=== PATIENT | female | born 1950 | race Two or more races ===

== ENCOUNTER 2023-11-09 08:09 | Emergency (ER) | payer OTHER ==
[~2023-11-09] VITALS: Ht 162.6 cm; Wt 44.0 kg
[2023-11-09 09:11] LABS: Urine Bacteria None Seen /hpf (None Seen)
[2023-11-09 09:15] LABS: Basophils # (auto) 0 10 ^3/uL (0-0.2); Basophils % (auto) 0.9 % (0.0-2.0); Eosinophils # (auto) 0.1 10 ^3/uL (0-0.8); Eosinophils % (auto) 2.6 % (0.0-7.0); Hematocrit 36.5 % (36.0-46.0); Hemoglobin 12.7 g/dL (12.2-16.2); Lymphocytes # (auto) 1.1 10 ^3/uL (0.4-5.4); Lymphocytes % (auto) 18.9 % (10.0-50.0); Mean Corpuscular Hemoglobin 33.2 pg (28.0-32.0); Mean Corpuscular Hgb Conc. 34.8 g/dL (32.0-36.0); Mean Corpuscular Volume 95.4 fL (80.0-100.0); Monocytes # (auto) 0.4 10 ^3/uL (0-1.3); Monocytes % (auto) 6.2 % (0.0-12.0); Neutrophils # (auto) 4.1 10 ^3/uL (1.6-8.6); Neutrophils % (auto) 71.4 % (37.0-80.0); Red Blood Cells 3.83 10^6/uL (4.0-5.20); Red Cell Distribution Width 12.9 % (11.8-14.3); White Blood Cell 5.8 10^3/uL (4.4-10.8)
[2023-11-09 09:21] LABS: Chloride 103 mmol/L (98-107); Potassium 4.1 mmol/L (3.5-5.1); Sodium 137 mmol/L (136-145)
[2023-11-09 09:22] LABS: Anion Gap 5 (5-15); Calcium 9.2 mg/dL (8.5-10.1); Carbon Dioxide 29 mmol/L (20-30)
[2023-11-09 09:27] LABS: BUN/Creatinine Ratio 26.1 (10.0-20.0); Blood Urea Nitrogen 24 mg/dL (9-23); Glucose 98 mg/dL (74-106)
[2023-11-09 10:15] LABS: Urine Blood Negative /uL (Negative); Urine Clarity Clear (Clear); Urine Color Light-Yellow (Yellow); Urine Protein, UAD Negative (Negative); Urine Specific Gravity 1.015 (1.001-1.035); Urine Urobilinogen Normal (Negative); Urine WBC <1 /hpf (0 - 5); Urine pH 7.5 (5.0-9.0)
[2023-11-09 10:27] VITALS: BP 128/76; PULSE 72; RESP 15; TEMP 98.5; O2SAT 98
[2023-11-09] MEDS ORDERED: LEVO500T91 PO (10:31)
== END 2023-11-09 10:38 | disposition home or self-care (01) ==
LOC: ER 08:09 → EDBD 08:09 → ER 10:38
DX: J01.90 Acute sinusitis, unspecified (principal); I10 Essential (primary) hypertension
CPT/HCPCS: 36415; 80048; 81001; 84484; 85025

== ENCOUNTER 2024-09-14 09:32 | Emergency (ER) | payer OTHER ==
[~2024-09-14] VITALS: Ht 149.9 cm; Wt 42.4 kg
[~2024-09-14 09:32] MED LIST: LEVO500T91 PO
[2024-09-14] MEDS: FAMOTIDINE 20 MG TAB PO ONE (10:23)
[2024-09-14] MEDS: diphenhdrAMINE HCL 25 MG CAP PO ONE (10:23)
[2024-09-14] MEDS: predniSONE 20 MG TAB PO ONE (10:23)
--- NOTE | 2024-09-14 10:24 | ED.PDOC ---
HPI Allergic reaction HPI Comments 73-year-old female presents with a chief complaint of angio-edema to lips. Patient states that last night she placed Vicks on her lips and went to bed and woke up with swollen lips. Patient is also on Lisinopril for her HTN. Patient denies anything new in her routines. No other symptoms or modifying factors present at this time. Chief Complaint: Allergic Reaction Time Seen by MD: 09:50 Primary Care Provider: VAIBHAV Marie Notes: Medications, Allergies Allergies: Coded Allergies: Caffeine (Verified Allergy, Unknown, TACHYCARDIA, 09/14/24) Clarithromycin (Verified Allergy, Unknown, SWOLLEN THROAT, 09/14/24) Doxycycline (Verified Allergy, Unknown, LEG WEAKNESS, VOMIT, BLURRY VISION, 09/14/24) Penicillins (Verified Allergy, Unknown, ABDOMEN PAIN, 09/14/24) Procaine (Verified Allergy, Unknown, CARDIAC ARREST, 09/14/24) Sulfa Antibiotics (Verified Allergy, Unknown, TONGUE SWELLING, 09/14/24) Home Meds Active Scripts Levofloxacin Hemihydrate (LEVAQUIN 500 MG) 500 Mg Tab, 1 TAB PO DAILY, #7 TAB Prov:BRENNA JULIO 11/09/23 Information Source: Patient Mode of Arrival: Ambulatory Severity: Moderate Rash: None SOB: None Difficulty swallowing: None Pruritus: None Timing: Hours Duration: Since onset Prehospital treatment: None Location: Lips Exposed to: Medication (LISINOPRIL) History of: None Modyifying Factors: None Associated Sign and Symptoms: None Past Medical History PAST MEDICAL HISTORY: HTN Past Medical History (Other): SLEEP APNEA Surgical History: Denies all surgeries 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 Pertinent BLOCK MAKING MACHINE OPERATOR History Family History Family History: Reviewed,noncontributory to illness Social History Smoker: Non-Smoker Alcohol: Denies ETOH Use Drugs: Denies Drug Use Lives In: Home Constitutional: denies: chills, diaphoresis, fatigue, fever, malaise, sweats, weakness, others EENTM: denies: blurred vision, double vision, ear bleeding, ear discharge, ear drainage, ear pain, ear ringing, eye pain, eye redness, hearing loss, mouth pain, mouth swelling, nasal discharge, nose bleeding, nose congestion, nose pain, photophobia, tearing, throat pain, throat swelling, voice changes, others Respiratory: denies: cough, hemoptysis, orthopnea, SOB at rest, shortness of breath, SOB with excertion, stridor, wheezing, others Cardiovascular: reports: edema (ANGIO-EDEMA); denies: chest pain, dizzy spells, diaphoresis, Dyspnea on exertion, irregular heart beat, left arm pain, lightheadedness, palpitations, PND, syncope, others Gastrointestinal: denies: abdomen distended, abdominal pain, blood streaked bowels, constipated, diarrhea, dysphagia, difficulty swallowing, hematemesis, melena, nausea, poor appetite, poor fluid intake, rectal bleeding, rectal pain, vomiting, others Genitourinary: denies: abnormal vagina bleeding, burning, dyspareunia, dysuria, flank pain, frequency, hematuria, incontinence, pain, , vagina discharge, urgency, others Neurological: denies: dizziness, fainting, headache, left sided numbness, left sided weakness, numbness, paresthesia, pre-existing deficit, right sided numbness, right sided weakness, seizure, speech problems, tingling, tremors, weakness, others Musculoskeletal: denies: back pain, gout, joint pain, joint swelling, muscle pain, muscle stiffness, neck pain, others Integumetry: denies: bruises, change in color, change in hair/nails, dryness, laceration, lesions, lumps, rash, wounds, others Allergic/Immunocompromised: denies: Difficulty Healing, Frequent Infections, Hives, Itching, others Hematologic/Lymphatic: denies: anemia, blood clots, easy bleeding, easy bruising, swollen glands, others Endocrine: denies: excessive hunger, excessive sweating, excessive thirst, excessive urination, flushing, intolerance to cold, intolerance to heat, unexplained weight gain, unexplained weight loss, others Psychiatric: denies: anxiety, bipolar disorder, depression, hopeless, panic disorder, schizophrenia, sleepless, suicidal, others All Other Systems: Reviewed and Negative Physical Exam General Appearance: No Apparent Distress, Normal HEENT: Normal ENT Inspection, Pharynx Normal, TMs Normal Neck: Full Range of Motion, Non-Tender, Normal, Normal Inspection Respiratory: Chest Non-Tender, Lungs Clear, No Accessory Muscle Use, No Respiratory Distress, Normal Breath Sounds Cardiovascular: No Edema, No JVD, No Murmur, No Gallop, Normal Peripheral Pulses, Regular Rate/Rhythm Breast Exam: Deferred Gastrointestinal: No Organomegaly, Non Tender, No Pulsatile Mass, Normal Bowel Sounds, Soft Genitalia: Deferred Pelvic: Deferred Rectal: Deferred Extremities: No calf tenderness, Normal capillary refill, Normal inspection, Normal range of motion, Non-tender, No pedal edema Musculoskeletal : Apperance: Normal Neurologic: Alert, crusher operator II-XII nml as Tested, No Motor Deficits, Normal Affect, Normal Mood, No Sensory Deficits Cerebellar Function: Normal Reflexes: Normal Skin: Dry, Normal Color, Warm Lymphatic: No Adenopathy Was a procedure done? Was a procedure done?: No Differential diagnosis (all) Differential Diagnosis: Angioedema, Drug Reaction X-Ray, Labs, Meds, VS Vital Signs Date Time Temp Pulse Resp B/P (MAP) Pulse Ox O2 Delivery O2 Flow Rate FiO2 09/14/24 10:30 98.2 84 16 155/79 (104) 97 98.2 09/14/24 10:30 84 16 97 Room Air 09/14/24 09:46 99.8 98 18 160/86 (110) 98 Current Medications Medications (Trade) Dose Ordered Sig/Ashwini Route Start Time Stop Time Status Last Admin Diphenhydramine HCl (Benadryl Capsule) 25 mg ONCE ONCE PO 09/14/24 10:15 09/14/24 10:16 DC 09/14/24 10:23 Prednisone 30 mg ONCE ONCE PO 09/14/24 10:15 09/14/24 10:16 DC 09/14/24 10:23 Famotidine (Pepcid Tablet) 40 mg ONCE ONCE PO 09/14/24 10:15 09/14/24 10:16 DC 09/14/24 10:23 73-year-old female presents here with upper and lower lip swelling. She is currently on lisinopril suspect likely angioedema. She has no tongue swelling no uvula swelling and denies any difficulty breathing. At this time I have given her Benadryl prednisone and famotidine in the emergency department. On re-evaluation at 12:20 p.m. by myself, lower lip swelling has resolved. Upper lip has improved but continues to have mild swelling. She continues to have no difficulty breathing and no evidence of uvula or tongue swelling. Daughter is at bedside. Spoke to both extensively. At this time advised him both to stop lisinopril. I will be starting patient on hydrochlorothiazide 12.5 mg p.o. q.day which I have given her a prescription for. Advised him to contact the [facility] physician in the [facility] physician may want to change the blood pressure medication to something else. Advised patient that if any point she was difficulty breathing tongue swelling worsening lip swelling to return back to the ER immediately. Family understands. Prescriptions for Benadryl prednisone and Pepcid has been sent to the pharmacy. Time of 1ST Reevaluation: 10:20 Reevaluation 1ST: Unchanged Time of 2ND Reevaluation: 12:22 Reevaluation 2ND: Improved Patient Education/Counseling: Diagnosis, Treatment, Prognosis Family Education/Counseling: Diagnosis, Treatment, Prognosis Departure 1 Departure Time of Disposition: 10:20 Impression: Primary Impression: Medication side effect Additional Impression: Angio-edema Qualified Codes: T78.3XXA - Angioneurotic edema, initial encounter Disposition: HOME / SELF CARE / HOMELESS Condition: Fair Written Prescriptions Stop taking lisinopril. I have started you on hydrochlorothiazide 12.5 mg once a day. Take this medicine temporarily until you follow up with your regular doctor at [facility]. Please contact your [facility] physician. Prednisone is best taken after breakfast. Benadryl can make her sleepy or drowsy-if it was making her too sleepy or drowsy do not take. If any point you have difficulty breathing or worsening of the swelling please return back to the emergency department. e-Prescriptions Hydrochlorothiazide (Hydrochlorothiazide) 12.5 Mg Cap 1 CAP PO DAILY, #30 CAP 5 Refills Prov: JENNIFFER NAIR MD 09/14/24 Diphenhydramine Hcl (Benadryl Allergy) 25 Mg Cap 25 MG PO [id number] PRN for 5 Days, #15 CAP Prov: JENNIFFER NAIR MD 09/14/24 Famotidine (PEPCID TABLET) 20 Mg Tb 1 TAB PO BID for 5 Days, #10 TAB 5 Refills Prov: JENNIFFER NAIR MD 09/14/24 Prednisone (Prednisone) 10 Mg Tab 30 MG PO QAM for 4 Days, #12 MG Prov: JENNIFFER NAIR MD 09/14/24 Discharged With: Self, Relative Critical Care Note Critical Care Time?: No Stability Stability form required: No Heart Score Heart Score: Heart Score Response (Comments) Value History N/A 0 EKG N/A 0 Age N/A 0 Risk Factors N/A 0 Troponin N/A 0 Total 0 I personally scribed for JENNIFFER NAIR MD ([email or web address]) on 09/14/24 at 10:24. Electronically submitted by Jerome Billy ([email or web address]). I personally scribed for JENNIFFER NAIR MD ([email or web address]) on 09/14/24 at 12:22. Electronically submitted by Jerome Billy ([email or web address]). JENNIFFER NAIR MD Sep 14, 2024 10:24
[2024-09-14 10:30] VITALS: BP 155/79; PULSE 84; RESP 16; TEMP 98.2; O2SAT 97
[2024-09-14] MEDS ORDERED: HYDR12.59 PO (12:32)
[2024-09-14] MEDS ORDERED: FAMO20TA10 PO (12:32)
[2024-09-14] MEDS ORDERED: DIPH25CA66 PO (12:32)
[2024-09-14] MEDS ORDERED: PRED10TA PO (12:32)
== END 2024-09-14 12:40 | disposition home or self-care (01) ==
LOC: ER 09:32
DX: T78.3XXA Angioneurotic edema, initial encounter (principal); T50.995A Adverse effect of other drugs, medicaments and biological substances, initial encounter; I10 Essential (primary) hypertension; Z79.899 Other long term (current) drug therapy; Z88.0 Allergy status to penicillin; Z88.1 Allergy status to other antibiotic agents; Z88.2 Allergy status to sulfonamides; Z88.8 Allergy status to other drugs, medicaments and biological substances; Y92.89 Other specified places as the place of occurrence of the external cause
CPT/HCPCS: 99284; J7512

== ENCOUNTER → 2025-03-08 17:47 | Emergency (ER) | payer OTHER ==
[~2025-03-08 17:47] MED LIST changes: +DIPH25CA66 PO; +FAMO20TA10 PO; +HYDR12.59 PO; +PRED10TA PO
== END | disposition left against medical advice (07) ==
LOC: ER 17:47
DX: R21 Rash and other nonspecific skin eruption (principal); Z53.21 Procedure and treatment not carried out due to patient leaving prior to being seen by health care provider